=== PATIENT | female | born 1945 | race Caucasian/White ===

== ENCOUNTER 2016-07-29 06:55 | Day surgery (SDC) | payer MEDICARE, OTHER ==
[~2016-07-29 06:55] MED LIST: ASABAYER PO; CIP2 PO; LEVOTHYROXIN100 MCG PO; LEVOTHYROXIN50 MCG PO; MACROBID PO; NOVLOGPUMP SC; ZOCOR20 PO
== END 2016-07-29 16:42 | disposition home or self-care (01) ==
LOC: SDC 06:55
PROVIDERS: Ophthalmology
PROC: 08Q8XZZ Repair Right Cornea, External Approach (ICD-10-PCS; principal; 2016-07-29 09:30)
DX: H18.51 Endothelial corneal dystrophy (principal); E78.00 Pure hypercholesterolemia, unspecified; E11.9 Type 2 diabetes mellitus without complications; E03.9 Hypothyroidism, unspecified; Z96.41 Presence of insulin pump (external) (internal); Z88.2 Allergy status to sulfonamides; Z79.4 Long term (current) use of insulin; Z79.899 Other long term (current) drug therapy
CPT/HCPCS: 80048; 82962; 85014; 85018; 87070; 87077; 87102; 87186; 87205; J0690; J2250; J2405; V2785